=== PATIENT | male | born 1990 | race American Indian/Alaskan Native ===

== ENCOUNTER 2016-03-15 01:08 | Emergency (ER) | payer OTHER ==
[2016-03-15] MEDS ORDERED: KEFLEX PO ONE (01:43)
[2016-03-15] MEDS ORDERED: TENIVAC IM ONE (01:43)
[2016-03-15] MEDS ORDERED: XYLOCAINE 2% INFILTRATI ONE (01:43)
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
[2016-03-15] MEDS ORDERED: KEFLEX ONE (04:04)
[2016-03-15 04:34] VITALS: BP 138/72
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
== END 2016-03-15 05:00 | disposition home or self-care (01) ==
LOC: ED 01:08
DX: S41.012A Laceration without foreign body of left shoulder, initial encounter (principal); W45.8XXA Other foreign body or object entering through skin, initial encounter; Y93.9 Activity, unspecified; Y99.9 Unspecified external cause status; Y92.89 Other specified places as the place of occurrence of the external cause
CPT/HCPCS: 90471; 90714